=== PATIENT | female | born 1965 | race Caucasian/White ===

== ENCOUNTER 2021-09-16 08:19 | Emergency (ER) | payer BC, OTHER ==
[~2021-09-16] VITALS: Ht 160 cm; Wt 69.5 kg
[~2021-09-16 08:19] MED LIST: CHOL2000 PO; CYCL10TA19 PO; HYDR-2765 PO; MULT400T3 PO; OMEG1CAP38 PO
[2021-09-16 08:22] VITALS: BP 124/94
--- NOTE | 2021-09-16 08:22 | PHYS DOC ---
Past Medical History Past Medical History: COPD, Depression, High Cholesterol, Hypertension, Other Additional Past Medical Histor: CHRONIC BACK PAIN Past Surgical History: , Tubal ligation Smoking Status: Current Every Day Smoker Alcohol Use: None Drug Use: Marijuana General Adult HPI: HPI: Patient is a 56 year old female who presents with report of left low back pain, rating to her left lower extremity. She has had similar symptoms many times in the past. She has years long history of recurrent low back pain. She reports that symptoms have progressively worsened over the past 2 to 3 days. She saw her chiropractor twice, and she reports that he performed some sort of massage and adjustment. She reports that it was painful when it was performed. She denies any direct trauma or fall. She denies numbness or tingling or focal motor weakness. She denies urine symptoms, denies abdominal pain, denies fevers or chills. She denies incontinence of bowel or bladder. She has taken [id number] medications without much relief. She has previously seen a neurosurgeon, many years ago, she underwent 2 steroid injections, but she has not followed up with a primary care doctor in quite some time. She only recently acquired insurance again. Review of Systems: Review of Systems: As per HPI Heart Score: C/O Chest Pain: No Risk Factors: Risk Factors: DM, Current or recent (<one month) smoker, HTN, HLP, family history of CAD, obesity. Risk Scores: Score 0 - 3: 2.5% MACE over next 6 weeks - Discharge Home Score 4 - 6: 20.3% MACE over next 6 weeks - Admit for Clinical Observation Score 7 - 10: 72.7% MACE over next 6 weeks - Early Invasive Strategies Allergies: Allergies: Allergies Coded Allergies Type Severity Reaction Last Updated Verified sertraline Allergy Intermediate 11/01/15 Yes venlafaxine Allergy Intermediate 11/01/15 Yes Physical Exam: PE: Constitutional: Well developed, well nourished, no acute distress, non-toxic appearance. [] HENT: Normocephalic, atraumatic Eyes: Sclera clear and anicteric Neck: Normal range of motion, no tenderness, supple, no stridor. Trachea midline Cardiovascular:Heart rate regular rhythm, 2 radial and +2 posterior tibial pulses bilaterally Lungs & Thorax: Bilateral breath sounds clear to auscultation [] Abdomen: Bowel sounds normal, soft, no tenderness, no masses, no pulsatile masses. No CVA tenderness. Skin: Warm, dry, no erythema, no rash. [] Back: No midline tenderness or step-offs. Limited range of motion secondary to pain. Left lumbar paraspinal muscle tenderness to palpation. No deformity is noted. Extremities: No tenderness, no cyanosis, no clubbing, ROM intact, no edema. No calf tenderness. Pelvis is stable. No limb deformity Neurologic: Alert and oriented X 3, normal motor function, normal sensory function, no focal deficits noted. No foot drop. Sensation is grossly intact. 5 out of 5 motor strength all 4 extremities. 2/4 DTR bilateral lower extremities. Psychologic: She is anxious and tearful, she is cooperative. EKG: EKG: [] Radiology/Procedures: Radiology/Procedures: IMAGING REPORT Signed PATIENT: RUPINDER REAL ACCOUNT: [id number] : 1965 LOCATION: ER AGE: 56 SEX: F EXAM STATUS: PRE ER ORD. PHYSICIAN: REYNALDO BATES DO REASON: low back pain, radiculopathy PROCEDURE: CT LUMBAR SPINE WO CONTRAST CT scan of the lumbar spine without contrast 09/16/2021 CLINICAL HISTORY: Low back pain. Lumbar radiculopathy. TECHNIQUE: Unenhanced contiguous, 0.625 mm axial sections were obtained through the lumbar spine. 3 mm reconstructed sagittal, axial and coronal images were obtained. One or more of the following individualized dose reduction techniques were utilized for this study: 1. Automated exposure control. 2. Adjustment of the mA and/or kV according to patient size. 3. Use of iterative reconstruction technique. FINDINGS: Comparison is made to a CT scan of the abdomen and pelvis dated 11/01/2015. Sagittal and coronal reconstructed images demonstrate minimal S-shaped curvature of the thoracolumbar spine. Degenerative changes consisting of vertebral endplate sclerosis and minimal to mild anterior and posterior vertebral body osteophyte formation are seen scattered throughout the lumbar disc spaces. Disc space narrowing is seen at L5-S1. Atherosclerotic calcification of the abdominal aorta and its branches is noted. No fracture or subluxation of the lumbar vertebrae is seen. The changes of degenerative disc disease are seen involving the lumbar disc spaces consisting of mild to moderate generalized disc bulges, degenerative changes involving the facet joints and mild to moderate ligamentum flavum hypertrophy. These findings result in mild central spinal canal stenosis at L2- 3. At the L5-S1 level a right paracentral disc osteophyte complex is seen. There appears to be a extruded disc fragment which extrudes superiorly from this to the mid L5 level. This measures 6 mm in AP diameter. This results in moderate to severe right lateral central spinal canal stenosis at the mid/inferior L4-5 level and appears to displace the right S1 nerve root posteriorly. No neural foraminal stenosis is seen. IMPRESSION: Degenerative changes are seen involving the thoracic spine as discussed above. These findings results in mild central spinal canal stenosis at L2-3 and moderate to severe right lateral central spinal canal stenosis at the mid/inferior L5 level no neural foraminal stenosis is seen. No acute osseous abnormality is noted. Electronically signed by: nAdre York MD (09/16/2021 9:35 AM) [id number] DICTATED and SIGNED BY: ANDRE YORK MD DATE: 09/16/21924 Course & Med Decision Making: Course & Med Decision Making Pertinent Labs and Imaging studies reviewed. (See chart for details) Patient is given p.o. prednisone, IM Toradol, p.o. Valium and p.o. Sedan here. She is resting comfortably, reports some improvement in pain. Imaging studies did not reveal any acute life-threatening process, no acute fracture. I do recommend that she follow-up with a primary care physician, she may require nonemergent, outpatient MRI. She is given multiple resources to establish care with a primary care physician. I have discussed all the findings, differential diagnosis and plan of care with her. Return precautions are given. She is comfortable with the plan for discharge home. Brisaon Disclaimer: Reena Disclaimer: This electronic medical record was generated, in whole or in part, using a voice recognition dictation system. Departure Departure Impression: Primary Impression: Lumbar radiculopathy Additional Impression: Acute exacerbation of chronic low back pain Disposition: HOME / SELF CARE / HOMELESS Condition: STABLE Referrals: NO PCP (PCP) PATRICK YA MD Patient Instructions: Back Pain, Adult, Lumbosacral Radiculopathy Additional Instructions: Use the medication as needed/as directed for your pain. You may alternate ice and heat. You may take [id number] ibuprofen as well. Make sure you take this with food. Return to the ER for acute injury or trauma, if you develop focal weakness, paralysis, temperature 100.4 or higher, if you lose control of your bowel or bladder function, or if you develop severe abdominal pain or for any other concerns. Please follow-up with your primary care physician, you may need a nonemergent, outpatient MRI. I am also giving you information for our neurosurgeon here. Scripts Prednisone (PREDNISONE) 50 Mg Tablet 1 TAB PO DAILY, #5 TAB Prov: REYNALDO BATES DO 09/16/21 Cyclobenzaprine Hcl (CYCLOBENZAPRINE HCL) 10 Mg Tablet 1 TAB PO BID for muscle spasm, #20 TAB Prov: REYNALDO BATES DO 09/16/21 Lidocaine (Lido Serge) 1 Each Adh..patch 1 EACH TP DAILY for pain, #10 PATCH remove after 12 hours Prov: REYNALDO BATES DO 09/16/21 Hydrocodone Bit/Acetaminophen (HYDROCODONE-APAP 5-325 ) 1 Tab Tablet 1 TAB PO PRN Q6HRS PRN for PAIN, #20 TAB 0 Refills Prov: REYNALDO BATES DO 09/16/21 REYNALDO BATES DO Sep 16, 2021 08:22
[2021-09-16] MEDS ORDERED: predniSONE 10 MG TABLET PO ONE (08:45)
[2021-09-16] MEDS ORDERED: diazePAM 2 MG TABLET PO ONE (09:00)
[2021-09-16] MEDS ORDERED: KETOROLAC 30 MG/ML VIAL. IM ONE (09:00)
[2021-09-16 09:19] LABS: BACTERIA,URINE FEW /HPF (0-FEW); RBC,URINE OCC /HPF (0-2)
--- NOTE | 2021-09-16 09:38 | RAD ---
CT scan of the lumbar spine without contrast 09/16/2021 CLINICAL HISTORY: Low back pain. Lumbar radiculopathy. TECHNIQUE: Unenhanced contiguous, 0.625 mm axial sections were obtained through the lumbar spine. 3 m m reconstructed sagittal, axial and coronal images were obtained. One or more of the following individualized dose reduction techniques were utilized for this study: 1. Automated exposure control. 2. Adjustment of the mA and/or kV according to patient size. 3. Use of iterative reconstruction technique. FINDINGS: Comparison is made to a CT scan of the abdomen and pelvis dated 11/01/2015. Sagittal and coronal reconstructed images demonstrate minimal S-shaped curvature of the thoracolumbar spine. Degenerative changes consisting of vertebral endplate sclerosis and minimal to mild anterior and posterior vertebral body osteophyte formation are seen scattered throughout the lumbar disc space s. Disc space narrowing is seen at L5-S1. Atherosclerotic calcification of the abdominal aorta and it s branches is noted. No fracture or subluxation of the lumbar vertebrae is seen. The changes of degenerative disc disease are seen involving the lumbar disc spaces consisting of mild to moderate generalized disc bulges, degenerative changes involving the facet joints and mild to mod erate ligamentum flavum hypertrophy. These findings result in mild central spinal canal stenosis at L 2-3. At the L5-S1 level a right paracentral disc osteophyte complex is seen. There appears to be a ex truded disc fragment which extrudes superiorly from this to the mid L5 level. This measures 6 mm in A P diameter. This results in moderate to severe right lateral central spinal canal stenosis at the mid /inferior L4-5 level and appears to displace the right S1 nerve root posteriorly. No neural foraminal stenosis is seen. IMPRESSION: Degenerative changes are seen involving the thoracic spine as discussed above. These find ings results in mild central spinal canal stenosis at L2-3 and moderate to severe right lateral centr al spinal canal stenosis at the mid/inferior L5 level no neural foraminal stenosis is seen. No acute osseous abnormality is noted. Electronically signed by: Andre York MD (09/16/2021 9:35 AM) [id number]
[2021-09-16] MEDS ORDERED: HYDROcodone/APAP 5/325MG 1 TAB TABLET PO ONE (10:15)
[2021-09-16] MEDS ORDERED: PRED50TA PO (10:19)
[2021-09-16] MEDS ORDERED: LIDO1ADH78 TP (10:19)
[2021-09-16] MEDS ORDERED: CYCL10TA19 PO (10:19)
[2021-09-16] MEDS ORDERED: HYDR-2761 PO (10:19)
== END 2021-09-16 10:28 | disposition home or self-care (01) ==
LOC: ER 08:19
DX: M54.16 Radiculopathy, lumbar region (principal); G89.29 Other chronic pain; J44.9 Chronic obstructive pulmonary disease, unspecified; E78.00 Pure hypercholesterolemia, unspecified; I10 Essential (primary) hypertension; F17.200 Nicotine dependence, unspecified, uncomplicated; Z98.51 Tubal ligation status
CPT/HCPCS: 72131; 81001; 96372; 99284; J1885; J7512